=== PATIENT | male | born 1990 | race African-American/Black ===

== ENCOUNTER 2017-01-26 20:07 | Emergency (ER) | payer BC ==
[~2017-01-26] VITALS: Ht 188 cm; Wt 131.5 kg
--- NOTE | ~2017-01-26 | CR252 ---
[facility]. [facility] A Service of [facility] [place] & [facility] RADIOLOGY TEXT RESULTS PATIENT: YIN RIVERA LOCATION: SED : [birth year] UNIT #: [id number] AGE: [address]: Claudia Quintana SEX: M ORDER DR: [id number] [address] [address] [id number] E MR#: [id number] Acc #: [id number] NAME: YIN RIVERA : 1990 SEX: M STUDY DATE/TIME: 01/26/2017 20:54 UNIT: SED ROOM: STUDY DESCRIPTION: CR Tibia and Fibula 2 Views Lt Attending Physician: Claudia Quintana Pa-C Ordering Physician: Physician Non-Staff Primary Care Physician: No Primary Care Physician MEDICAL IMAGING REPORT This report is preliminary unless electronic signature is present. EXAM Tib-fib series on the left, 01/26/2017 INDICATION 26-year-old male with a history of trauma, pain for 3 days, running, took three steps and the leg gave out on the left. TECHNIQUE 2-views of the left tib-fib. No comparisons. FINDINGS Examination is negative. No acute fracture. Soft tissues unremarkable. IMPRESSION 1. Negative. Dictated by... Kapil Crowder M.D. THIS IS AN ELECTRONICALLY VERIFIED REPORT Kapil Crowder M.D. at 01/27/2017 2:22 PM Sherry TD: 01/27/2017 11:01 JOB #: [id number] MEDICAL IMAGING REPORT Page 1 of 1
[~2017-01-26 20:07] MED LIST: BACLOFEN10 MG PO; CLARITIN10 MG PO; IBUPROFEN800 MG PO; ILOTYCIN1 GM OS; NABUMETONE PO; NO MEDICATIONS; ULTRAM PO
== END 2017-01-26 22:24 | disposition home or self-care (01) ==
LOC: SED 20:07
DX: S86.112A Strain of other muscle(s) and tendon(s) of posterior muscle group at lower leg level, left leg, initial encounter (principal); J45.909 Unspecified asthma, uncomplicated; F17.200 Nicotine dependence, unspecified, uncomplicated; X58.XXXA Exposure to other specified factors, initial encounter; Y92.830 Public park as the place of occurrence of the external cause
CPT/HCPCS: 73590; 99283

== ENCOUNTER 2017-02-17 14:12 | Emergency (ER) | payer BC ==
--- NOTE | ~2017-02-17 | CR142 ---
[facility] [[email or web address] [facility] A Service of [facility] & [facility] RADIOLOGY TEXT RESULTS PATIENT: YIN RIVERA LOCATION: SED : [birth year] UNIT #: [id number] AGE: [address]: SETH CONNER SEX: M ORDER DR: [id number] [place] [id number] E MR#: [id number] Acc #: [id number] NAME: YIN RIVERA : 1990 SEX: M STUDY DATE/TIME: 02/17/2017 14:44 UNIT: SED ROOM: STUDY DESCRIPTION: CR Hand Min 3 Views Rt Attending Physician: Seth Conner R.N. Ordering Physician: Seth Conner R.N. Primary Care Physician: No Primary Care Physician MEDICAL IMAGING REPORT This report is preliminary unless electronic signature is present. EXAM Right hand. INDICATIONS Right hand pain 20 minutes after dropping soap on hand. FINDINGS Three views of the right hand were obtained. No fracture is visible. The bones are normal. IMPRESSION Normal right hand. Dictated by... Pedrito Cassidy M.D. THIS IS AN ELECTRONICALLY VERIFIED REPORT Pedrito Cassidy M.D. at 02/17/2017 10:09 PM ELIUD/nina TD: 02/17/2017 18:38 JOB #: [id number] MEDICAL IMAGING REPORT Page 1 of 1
== END 2017-02-17 16:07 | disposition home or self-care (01) ==
LOC: SED 14:12
DX: S60.221A Contusion of right hand, initial encounter (principal); J45.909 Unspecified asthma, uncomplicated; F17.210 Nicotine dependence, cigarettes, uncomplicated; W23.0XXA Caught, crushed, jammed, or pinched between moving objects, initial encounter; Y92.009 Unspecified place in unspecified non-institutional (private) residence as the place of occurrence of the external cause
CPT/HCPCS: 29280; 73130; 99283